=== PATIENT | male | born 1990 | race Caucasian/White ===

== ENCOUNTER 2017-10-04 10:00 | Emergency (ER) | payer SELFPAY ==
[~2017-10-04] VITALS: Ht 175.3 cm; Wt 82.6 kg
[2017-10-04 10:58] LABS: APPEARANCE CLEAR ((CLEAR)); BILIRUBIN NEGATIVE; BLOOD NEGATIVE; COLOR YELLOW ((YELLOW)); GLUCOSE (STRIP) NEGATIVE; KETONES NEGATIVE; LEUKOCYTES TRACE; NITRITE NEGATIVE; PROTEIN (STRIP) NEGATIVE; SPECIFIC GRAVITY 1.024 (1.000-1.030); UROBILINOGEN 0.2 MG/DL (0.2-1.0)
[2017-10-04 11:02] LABS: BACTERIA NONE SEEN /HPF; EPITHELIAL CELLS RARE /HPF; MUCUS TRACE /LPF; RED BLOOD CELLS 0-5 /HPF (0-5); UCUL ADDED? YES
[2017-10-04 11:10] LABS: HEMATOCRIT 46.4 % (38.0-50.0); HEMOGLOBIN 16.3 G/DL (12.5-16.6); MCH 30.8 PG (29.0-34.0); MCHC 35.1 G/DL (30.0-36.0); MCV 87.5 FL (86-99); PLATELET COUNT 273 K/uL (156-360); RBC DIS.WIDTH-CV 12.8 % (11.8-14.6); RBC DIS.WIDTH-SD 40.8 % (39-53); WHITE BLOOD COUNT 6.6 K/uL (4.1-10.2)
[2017-10-04 11:16] LABS: SOURCE URINE
[2017-10-04 11:19] LABS: ALBUMIN 4.6 g/dL (3.2-4.8)
[2017-10-04 11:20] LABS: CHLORIDE 103 mEq/L (99-109); POTASSIUM 4.3 mEq/L (3.7-5.4); SODIUM 139 mEq/L (136-147)
[2017-10-04 11:22] LABS: GLUCOSE 57 mg/dL (70-99); TOTAL PROTEIN 7.3 g/dL (6.4-8.3)
[2017-10-04 11:24] LABS: TOTAL BILIRUBIN 0.7 mg/dL (0.0-1.0)
[2017-10-04 11:25] LABS: ALKALINE PHOSPHATASE 69 IU/L (3-129)
[2017-10-04 11:26] LABS: CREATININE 0.9 mg/dL (0.6-1.3)
[2017-10-04 11:27] LABS: AST (GOT) 32 IU/L (2-34); UREA NITROGEN (BUN) 13 mg/dL (9-23)
[2017-10-04 11:31] LABS: GFR ESTIMATE (CALCULATED) > 59 mL/min/ (58.99-99999)
[2017-10-04 11:43] LABS: ALT (GPT) 22 IU/L (3-49); LIPASE 13 U/L (1.0-51.0)
[2017-10-04 12:25] VITALS: BP 124/80
[2017-10-07 12:36] LABS: CHLAMYDIA TRACHOMATIS POSITIVE; NEISSERIA GONORRHOEAE NEGATIVE
== END 2017-10-04 12:26 | disposition home or self-care (01) ==
LOC: EME 10:00
PROVIDERS: Physician Assistant
DX: Z20.2 Contact with and (suspected) exposure to infections with a predominantly sexual mode of transmission (principal); N34.2 Other urethritis
CPT/HCPCS: 76870; 80053; 81003; 83690; 85027; 87086; 87491; 87591; 99281; 99284; J0696

== ENCOUNTER 2017-10-20 13:31 | Emergency (ER) | payer SELFPAY ==
[~2017-10-20] VITALS: Ht 175.3 cm; Wt 81.0 kg
[2017-10-20 14:00] LABS: SOURCE URINE
[2017-10-20 14:27] VITALS: BP 150/84
[2017-10-21 13:55] LABS: CHLAMYDIA TRACHOMATIS NEGATIVE; NEISSERIA GONORRHOEAE NEGATIVE
== END 2017-10-20 14:28 | disposition home or self-care (01) ==
LOC: EME 13:31
PROVIDERS: Nurse Practitioner Family
DX: Z20.2 Contact with and (suspected) exposure to infections with a predominantly sexual mode of transmission (principal)
CPT/HCPCS: 87491; 87591; 99281; 99283

== ENCOUNTER 2017-12-13 11:55 | Emergency (ER) | payer SELFPAY ==
[~2017-12-13] VITALS: Ht 177.8 cm; Wt 76.2 kg
[2017-12-13] MEDS ORDERED: MOTRIN800 MG PO (13:42)
[2017-12-13 14:01] VITALS: BP 116/89
== END 2017-12-13 14:02 | disposition home or self-care (01) ==
LOC: EME 11:55
DX: S46.912A Strain of unspecified muscle, fascia and tendon at shoulder and upper arm level, left arm, initial encounter (principal); S92.321A Displaced fracture of second metatarsal bone, right foot, initial encounter for closed fracture; Y04.2XXA Assault by strike against or bumped into by another person, initial encounter; K02.9 Dental caries, unspecified
CPT/HCPCS: 70450; 70486; 72125; 73030; 73630; 99281; 99284